=== PATIENT | male | born 2000 | race Two or more races ===

== ENCOUNTER 2023-11-06 06:17 | Emergency (ER) | payer OTHER ==
[2023-11-06 06:44] LABS: BASOPHILS % (AUTO) 0.2 %; EOSINOPHILS % (AUTO) 0.3 %; HCT - HEMATOCRIT 41.8 % (42.0-52.0); HGB - HEMOGLOBIN 14.7 g/dL (14.0-18.0); LYMPHOCYTES # (AUTO) 1.7 10^3/uL (1.5-3.5); LYMPHOCYTES % (AUTO) 18.7 %; MEAN CORPUSCULAR HEMOGLOBIN 30.6 pg (27.0-31.0); MEAN CORPUSCULAR HGB CONC 35.2 g/dL (32.0-36.0); MEAN CORPUSCULAR VOLUME 87.1 fL (80.0-94.0); MEAN PLATELET VOLUME 10.1 fL (7.4-11.4); MONOCYTES # (AUTO) 0.5 10^3/uL (0.0-1.0); MONOCYTES % (AUTO) 5.9 %; NEUTROPHILS # (AUTO) 6.8 10^3/uL (1.5-6.6); NEUTROPHILS % (AUTO) 74.7 %; PLT - PLATELET COUNT 236 10^3/uL (130-450); RED CELL DISTRIBUTION WIDTH 11.1 % (12.0-15.0); WHITE BLOOD COUNT 9.1 x10^3/uL (4.8-10.8)
[2023-11-06] MEDS ORDERED: PROMETHAZINE 25 MG/1 ML VIAL ONE (06:52)
[2023-11-06] MEDS: PROMETHAZINE INJ 25 MG in SODIUM CHLORIDE 0.9% 50 ML IV STA (06:53)
[2023-11-06] MEDS: SODIUM CHLORIDE 0.9% 1,000 ML IV STA (06:55)
[2023-11-06 07:25] LABS: ALBUMIN 5.4 g/dL (3.2-5.5); ALBUMIN/GLOBULIN RATIO 2.1 (1.0-2.2); CALCIUM 10.5 mg/dL (8.5-10.3)
[2023-11-06 07:40] LABS: BILIRUBIN,URINE NEGATIVE (NEGATIVE); GLUCOSE, URINE (UA) NEGATIVE (NEGATIVE); KETONES,URINE (UA) 15 mg/dL (NEGATIVE); LEUKOCYTE ESTERASE, URINE NEGATIVE (NEGATIVE); NITRITE,URINE NEGATIVE (NEGATIVE); OCCULT BLOOD,URINE NEGATIVE (NEGATIVE); PH,URINE 6.5 PH (5.0-7.5); PROTEIN,URINE NEGATIVE (NEGATIVE); UROBILINOGEN,URINE 0.2 (NORMAL) E.U./dL (NORMAL)
[2023-11-06 07:41] LABS: CLARITY,URINE CLEAR (CLEAR)
--- NOTE | 2023-11-06 08:12 | ED Physician Documentation ---
PD HPI NVD - Stated complaint Stated Complaint: NAUSEA,TREMBLES,DIZZINESS - Chief complaint Chief Complaint: Abd Pain - History obtained from History obtained from: Patient - History of Present Illness Timing - onset: How many days ago (5) Timing - duration: Days (5) Timing - details: Gradual onset, Still present, Waxing and waning Associated symptoms: Abdominal pain, Dizzy Contributing factors: Other (cannabis use). No: Diabetes Improved by: Laying still, BM Similar symptoms before: Has not had sx before Recently seen: Not recently seen - Additonal information Additional information: 23-year-old Rogelio Tucker presents to the emergency department with abdominal discomfort and nausea for the past 5 days. He has had some loose stool as well. He has not had this previously but he does admit to cannabis use and is concerned about the possibility of cannabis hyperemesis. He has not tried a warm shower or hot bath for relief of symptoms. He has some nondescript abdominal pain associated with this denies any blood in the stool and has not had vomiting. He feels continuously nauseous he has now received some Phenergan and feels improved. Review of Systems Constitutional: denies: Fever Eyes: denies: Decreased vision Ears: denies: Ear pain Nose: denies: Rhinorrhea / runny nose, Congestion Throat: denies: Sore throat Cardiac: denies: Chest pain / pressure Respiratory: denies: Dyspnea, Cough GI: reports: Abdominal Pain, Nausea, Diarrhea. denies: Vomiting : denies: Dysuria, Frequency Skin: denies: Rash Musculoskeletal: denies: Neck pain, Back pain, Extremity pain Neurologic: denies: Generalized weakness, Focal weakness, Numbness PD PAST MEDICAL HISTORY - Past Medical History Past Medical History: No - Past Surgical History Past Surgical History: No - Present Medications Home Medications: Ambulatory Orders Medication Instructions Recorded Confirmed Promethazine [Phenergan] 25 mg PO Q6H PRN #10 tab 11/06/23 - Allergies Allergies/Adverse Reactions: Allergies Allergy/AdvReac Type Severity Reaction Status Date / Time No Known Drug Allergies Allergy Verified 11/06/23 06:23 - Social History Does the pt smoke?: No Smoking Status: Never smoker Does the pt drink ETOH?: No Does the pt have substance abuse?: No - Immunizations Immunizations are current?: No - POLST Patient has POLST: No PD ED PE NORMAL - Vitals Vital signs reviewed: Yes (normal ) - General General: Alert and oriented X 3, No acute distress, Well developed/nourished - HEENT HEENT: Atraumatic, PERRL, EOMI - Neck Neck: Supple, no meningeal sign, No bony TTP - Cardiac Cardiac: RRR, No murmur - Respiratory Respiratory: No respiratory distress, Clear bilaterally - Abdomen Abdomen: Normal bowel sounds, Soft, Non tender, Non distended, No organomegaly - Back Back: No CVA TTP, No spinal TTP - Derm Derm: Normal color, Warm and dry, No rash - Extremities Extremities: No deformity, No edema - Neuro Neuro: Alert and oriented X 3, 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, No motor deficit, No sensory deficit, Normal speech Eye Opening: Spontaneous Motor: Obeys Commands Verbal: Oriented GCS Score: 15 - Psych Psych: Normal mood, Normal affect Results - Vitals Vitals: Vital Signs - 24 hr 11/06/23 06:24 Temperature 36.1 C L Heart Rate 68 Respiratory 16 Rate Blood Pressure 128/64 O2 Saturation 100 Oxygen O2 Source Room air - Labs Labs: Laboratory Tests 11/06/23 11/06/23 11/06/23 06:40 06:40 07:30 WBC 9.1 RBC 4.80 Hgb 14.7 Hct 41.8 L MCV 87.1 MCH 30.6 MCHC 35.2 RDW 11.1 L Plt Count 236 MPV 10.1 Neut # (Auto) 6.8 H Lymph # (Auto) 1.7 Phillips # (Auto) 0.5 Eos # (Auto) 0.0 Baso # (Auto) 0.0 Absolute Nucleated RBC 0.00 Nucleated RBC % 0.0 Sodium 139 Potassium 4.0 Chloride 107 Carbon Dioxide 22 Anion Gap 10.0 BUN 14 Creatinine 1.0 Estimated GFR (MDRD) 93 Glucose 105 H Calcium 10.5 H Total Bilirubin 1.0 AST 14 ALT 16 Alkaline Phosphatase 62 Total Protein 8.0 Albumin 5.4 Globulin 2.6 Albumin/Globulin Ratio 2.1 Lipase 16 Urine Color YELLOW Urine Clarity CLEAR Urine pH 6.5 Ur Specific [place] 1.025 Urine Protein NEGATIVE Urine Glucose (UA) NEGATIVE Urine Ketones 15 H Urine Occult Blood NEGATIVE Urine Nitrite NEGATIVE Urine Bilirubin NEGATIVE Urine Urobilinogen 0.2 (NORMAL) Ur Leukocyte Esterase NEGATIVE Ur Microscopic Review NOT INDICATED Urine Culture Comments NOT INDICATED PD Medical Decision Making - ED course Complexity details: reviewed results, re-evaluated patient, considered differential, d/w patient Reviewed Lab Results: We reviewed a complete blood cell count showing a normal white blood cell count normal hemoglobin hematocrit and platelets normal indices chemistries are with normal electrolytes normal kidney and liver function calcium is mildly elevated at 10.5. Urinalysis shows a specific gravity 1.025 and ketones are present. I interpret these laboratory studies to indicate a degree of dehydration expected with diarrhea and no vomiting of 5 days duration. He does not have any evidence of loss of potassium. His course is consistent with gastroenteritis. ED course: 23-year-old male vomiting and diarrhea for 5 days concerns for cannabis hyperemesis without confirmation. Treated with Phenergan and saline feels improved we will E scribe some Phenergan. Departure - Departure Disposition: 01 Home, Self Care Clinical Impression: Gastroenteritis Condition: Stable Instructions: ED Gastroenteritis Viral Follow-Up: [facility] [Provider Group] Prescriptions: Promethazine [Phenergan] 25 mg PO Q6H PRN #10 tab PRN Reason: Nausea / Vomiting Comments: Rogelio, today it looks like you have a gastroenteritis and we are E scribed in some Phenergan for you to use to the [facility] in [place]. If you are unable to hold down fluids return to the emergency department for hydration.
[2023-11-06 08:34] VITALS: BP 145/76; O2SAT 99
== END 2023-11-06 08:31 | disposition home or self-care (01) ==
LOC: ED 06:17
DX: K52.9 Noninfective gastroenteritis and colitis, unspecified (principal)
CPT/HCPCS: 36415; 80053; 81003; 83690; 85025; 96365; 99284; J7040; 81001; 87086